=== PATIENT | female | born 1970 | race Caucasian/White ===

== ENCOUNTER → 2020-01-15 14:39 | Outpatient (CLI) | payer OTHER, SELFPAY ==
--- NOTE | 2020-01-15 14:40 | DI.US.S_ITS ---
PROCEDURE: US ABDOMEN LIMITED INDICATIONS: splenomegaly, anemia TECHNIQUE: Real-time focused scanning was performed of the abdomen, with image documentation. COMPARISON: None. FINDINGS: The spleen measures 13.3 x 13.8 x 5 cm, with a calculated volume of 480 cubic cm. IMPRESSION: Splenomegaly. Dictated by: Bal Salazar M.D. on 01/15/2020 at 14:28 Approved by: Bal Salazar M.D. on 01/15/2020 at 14:29
== END ==
PROVIDERS: PCP Acupuncturist; Referring Provider Acupuncturist; Visit Provider Internal Medicine Hematology & Oncology
DX: R16.1 Splenomegaly, not elsewhere classified (principal); D50.9 Iron deficiency anemia, unspecified
CPT/HCPCS: 76705

== ENCOUNTER → 2020-02-29 10:41 | Outpatient (CLI) | payer OTHER, SELFPAY ==
--- NOTE | 2020-02-29 | DI.US.S_ITS ---
PROCEDURE: US ABDOMEN COMPLETE INDICATIONS: LEFT UPPER QUADRANT AND LEFT LOWER QUADRANT PAIN TECHNIQUE: Real-time scanning was performed of the abdominal and retroperitoneal organs, with image documentation. COMPARISON: [facility], , US ABDOMEN LIMITED, 01/15/2020, 14:57. FINDINGS: Liver: Liver is normal in size and homogeneous in echotexture. Gallbladder: The gallbladder appears normal Biliary ducts: Intrahepatic bile ducts are non-dilated. Extrahepatic bile duct caliber measures 3.4 mm. Normal is 6-7 mm or less in diameter, or 10 mm or less post-cholecystectomy. Pancreas: Visualized portions of the pancreas are sonographically normal. Spleen: Spleen is mildly enlarged in size as was previously the case and homogeneous in echotexture. Kidneys: Kidneys are normal in size and echotexture. Right kidney measures 12.7 cm long; left kidney measures 13.4 cm long. No hydronephrosis or nephrolithiasis. No solid masses. Aorta: Visualized aorta is normal in caliber at less than 3 cm. Iliacs: Proximal common iliac arteries are normal in caliber at less than 2.5 cm. IVC: Intrahepatic inferior vena cava is patent. Miscellaneous: No free abdominal fluid. IMPRESSION: Splenic size is enlarged, as was previously the case 01/15/20. No focal splenic lesion is identified. Dictated by: Wenceslao Valerio M.D. on 02/29/2020 at 13:30 Approved by: Wenceslao Valerio M.D. on 02/29/2020 at 13:34
== END ==
PROVIDERS: PCP Acupuncturist; Referring Provider Acupuncturist; Visit Provider Acupuncturist
DX: R10.12 Left upper quadrant pain (principal); R10.32 Left lower quadrant pain; R16.1 Splenomegaly, not elsewhere classified
CPT/HCPCS: 76700

== ENCOUNTER → 2020-03-07 14:20 | Oncology outpatient (ONC) | payer OTHER, SELFPAY ==
[2020-01-11] MEDS: IRON SUCROSE 200 MG in SODIUM CHLORIDE 0.9% 100 ML 110 ML IV (15:01)
[2020-01-11 16:18] VITALS: BP 125/67; PULSE 79; RESP 16; TEMP 37; O2SAT 100
--- NOTE | 2020-01-11 16:36 | P.CONONC_ITS ---
History of Present Illness - Data of Consult Patient: new to practice Consult date: 01/11/20 Requesting Physician: Mana Cutler ND Primary Care Provider: Mana Cutler ND - Consult Narrative Reason for consult: Severe iron deficiency anemia Narrative: Adelina Ballesteros is a 49 year old female with medical problems most notable for type 1 diabetes, and alopecia areata. According to patient, she has been diagnosed with iron deficiency for a number of years. Patient has used oral iron supplements in the past; however she said that the oral supplement did not seem to make any difference. Therefore she has not been taking the oral iron supplementation consistently. Available laboratory test results from 03/01/2017 showed WBC 3.6, hemoglobin 9.5, hematocrit 33.3, and MCV 65, platelet counts 383. Recently on 12/22/2019, she went to the emergency room because of urinary tract infection. The lab results showed WBC 10.3, hemoglobin 8.1, hematocrit 28.6, M CV 62, and platelet counts 223. On December 29, 2019, she underwent repeat lab tests that showed WBC 10.7, hemoglobin 7, hematocrit 25 1%, MCV 63, and platelet count 600. Serum creatinine level 0.68. Iron binding capacity 220, iron 16, and iron saturation 7%. Ferritin 30. Patient said that her energy level was good until a few weeks ago. She has never had colonoscopy before. She denies any blood in the stool or blood in urine. She denies any heavy periods. She denies any craving for unusual food or objects. Early this morning, patient underwent first infusion of Venofer and has tolerate d well. CC: Laura Moffett MD Home Medications and Allergies Home Medications Medication Instructions Recorded Confirmed Type insulin glargine [Lantus U-100 16 unit SUBCUT BID 01/11/20 01/11/20 History Insulin] insulin lispro [Humalog U-100 5 unit SUBCUT TID 01/11/20 01/11/20 History Insulin] Allergies Allergy/AdvReac Type Severity Reaction Status Date / Time No Known Drug Allergies Allergy Verified 01/11/20 15:50 Medical History - Medical, Surgical, Family History Medical History: Medical History (Last Updated 01/11/20 @ 21:50 by Laura Moffett MD) Alopecia areata Chronic anemia Type 1 diabetes Surgical History: Surgical History (Last Updated 01/11/20 @ 21:54 by Laura Moffett MD) H/O removal of cyst History of Family History: Family History (Last Updated 01/11/20 @ 21:54 by Laura Moffett MD) Sister defect Asthma Review of Systems All systems PM: reviewed and no additional remarkable complaints except as stated Exam Vital signs: Vital Signs Temp Pulse Resp BP Pulse Ox 01/11/20 16:18 98.6 F 79 16 125/67 100 Intake and Output 01/11/20 01/11/20 01/11/20 07:59 15:59 23:59 Intake Total 110 / 110 Balance 110 / 110 Intake: IV 110 / 110 Iron Sucrose 200 mg In Sodium 110 / 110 Chloride 0.9% 100 ml @ 110 mls/ hr IV NOW ONE Rx#:[id number] - Constitutional positive no acute distress, positive chronically ill appearing, positive cooperative - Routine HEENT Exam Head: Present: normocephalic, atraumatic Eye: Present: EOMI, PERRL, normal accommodation. Absent: conjunctival icterus ENT: Present: mucous membranes moist - Routine Neck Exam Present: supple. Absent: lymphadenopathy, thyromegaly - Routine Chest/Breast/Axilla Exam Axillae: Absent: lymphadenopathy - Routine Respiratory Exam Present: Clear to auscultation bilaterally. Absent: wheezes - Routine Cardiovascular Exam Present: RRR, S1, S2. Absent: murmur, gallop, rubs - Routine Abdominal Exam Present: soft. Absent: tenderness, distended Palpation/Percussion: Present: splenomegaly (1 cm below LCM). Absent: hepatomegaly - Routine Extremities Exam Absent: edema - Routine Neurological Exam Present: alert, oriented X3, CN II-XII intact. Absent: sensory deficit, motor deficit - Routine Psychiatric Exam Present: normal affect Results - Labs See HPI Assessment and Plan (1) Iron deficiency anemia 49-year-old female with iron deficiency anemia of unknown etiology, presumably due to abnormal uptake. Patient has history of type 1 diabetes. Patient denies any abnormal heavy periods and denies any gastrointestinal bleeding. I talked with the patient that most likely she has malabsorption of the oral iron supplements. I agree with continued the iron infusion and will evaluate the response in about 8 weeks and decide about future iron infusion. On my physical examination, the spleen is just palpable. I am recommending an ultrasound study for further evaluation. Plan: Continue and complete Venofer 200 mg iv qw x5 US abd to evaluate splenomegaly RTC in 8 weeks, CBC, CMP, Fe panel, Ferritin (2) Splenomegaly See Above
--- NOTE | 2020-01-12 15:44 | ONC.SCHED ---
Noticed that referral for consult was for [id number]. Not sure if this covers our usual 05858 code for billing. Email Mahsa Brenner to see if I need to have patient's doctore, Mana Cutler, put in a different referral for her consult (retro) or simply have her do a new referral for her follow-up visits using code 15499. Also, submitted referral request for [id number] Iron for the additional infusions ordered by Dr. Moffett.
--- NOTE | 2020-01-13 11:06 | ONC.SCHED ---
Shakira, nurse @ [facility], is putting in for retro auth dating back to 01/11/2020 for [id number], PA Charles Mcconnell referring. [place] [id number] and was billed as [id number] per Mahsa Brenner. I initially reached out to Dr. Cuello, with whom I spoke directly, who stated that she wasn't the one who did the referral for the patient because [facility] required that she establish with a [facility] provider prior to being referred. Will check for approval in a couple of days. Patient's iron authorization, put in by me yesterday, 01/12/2020, is pending review.
[2020-01-18] MEDS: IRON SUCROSE 200 MG in SODIUM CHLORIDE 0.9% 100 ML 220 ML IV (15:08)
[2020-01-18 15:29] VITALS: BP 125/75; PULSE 67; RESP 16; TEMP 37.1; O2SAT 100
--- NOTE | 2020-01-21 11:55 | PC.NURSE ---
Addendum entered by Tameka Roper R.N. 01/21/20 13:59: Pt update over phone, verbalized understanding, agrees to keep appts. Original Note: U.S update: Pt called for update on ultra sound results. Dr. Moffett reviewed results and stated spleen very mildly enlarged. According to Dr. Moffett not urgent and pt okay to keep iron infusion appt and f/u in 8 weeks. This RN called to update pt, unable to reach pt, VM left to return call to clinic.
[2020-01-25] MEDS: IRON SUCROSE 200 MG in SODIUM CHLORIDE 0.9% 100 ML 220 ML IV (15:16)
[2020-01-25 15:19] VITALS: BP 133/77; PULSE 59; RESP 16; TEMP 36; O2SAT 100
--- NOTE | 2020-02-02 09:35 | PC.NURSE ---
Pt called to report pain in left flank. More severe last week, but has gotten better. Pt reports no other symptoms but that she believes she has a kidney stone caused by the iron treatment This was conveyed to Dr. Moffett and his response was that he believes the pain is unrelated to the iron treatment and advised the patient to seek medical treatment for the pain. Pt verbalized understanding.
[2020-02-08] MEDS: IRON SUCROSE 200 MG in SODIUM CHLORIDE 0.9% 100 ML 220 ML IV (15:40)
[2020-03-07 14:59] VITALS: BP 136/76; PULSE 60; RESP 16; TEMP 35.8; O2SAT 100
--- NOTE | 2020-03-07 15:00 | P.PNONC_ITS ---
PN -Subjective Interval history: Favian is a 49 year old female with chronic iron deficiency. She recently completed IV iron sucrose weekly 200 mg x 4. She reported that her eye sight improved and her cough went away. She reports no sob, no cp, no n/v, and no abdominal pain. She has a little bit fullness of the abdomen. She has pain in h er hips that comes and goes. She said she did not take any pain medications. Today, she is complaining muscle and joint aches. She reports very irregular menstrual periods. Home Medications and Allergies Home Medications Medication Instructions Recorded Confirmed Type insulin glargine [Lantus U-100 16 unit SUBCUT BID 01/11/20 03/07/20 History Insulin] insulin lispro [Humalog U-100 5 unit SUBCUT TID 01/11/20 03/07/20 History Insulin] Allergies Allergy/AdvReac Type Severity Reaction Status Date / Time No Known Drug Allergies Allergy Verified 01/11/20 15:50 Exam Vital signs: 03/07/20 23:27 Last Vital Signs Temp 96.5 F L 03/07/20 14:59 Pulse 60 03/07/20 14:59 Resp 16 03/07/20 14:59 BP 136/76 03/07/20 14:59 Pulse Ox 100 03/07/20 14:59 - Constitutional positive no acute distress, negative average body habitus, positive chronically ill appearing, positive cooperative - Routine HEENT Exam Head: Present: normocephalic, atraumatic, cushingoid faces Eye: Present: EOMI, PERRL, normal accommodation. Absent: conjunctival icterus, scleral injection - Routine Neck Exam Present: supple. Absent: lymphadenopathy, thyromegaly - Routine Chest/Breast/Axilla Exam Axillae: Absent: lymphadenopathy - Routine Respiratory Exam Present: Clear to auscultation bilaterally. Absent: accessory muscle use, wheezes - Routine Cardiovascular Exam Present: RRR, S1, S2. Absent: murmur, gallop, rubs - Routine Abdominal Exam Present: soft. Absent: tenderness, distended, organomegaly Palpation/Percussion: Absent: hepatomegaly - Routine Extremities Exam Present: clubbing, edema. Absent: cyanosis - Routine Neurological Exam Present: alert, oriented X3, CN II-XII intact. Absent: sensory deficit, motor deficit - Routine Psychiatric Exam Present: normal affect Assessment and Plan (1) Iron deficiency anemia 49-year-old female with iron deficiency anemia of unknown etiology, presumably due to abnormal uptake. Patient has history of type 1 diabetes. Patient denies any abnormal heavy periods and denies any gastrointestinal bleeding. Patient received intravenous iron 200 mg 1 for about 4 infusions. Overall she has tolerated well. I reviewed the lab results with the patient. Compared to December, the iron panel has normalized. Talked with the patient that I will continue current active surveillance and will proceed with intravenous iron infusion on as-needed basis. Patient understood that the most important is to monitor if there is any bleeding. I also touched base with her about possible screening colonoscopy. Patient voiced understanding but declined the colonoscopy. She would like to think about it before making decision. Plan: RTC in 12 weeks, CBC, CMP, Fe panel, Ferritin (2) Splenomegaly I also reviewed the ultrasound study with the patient. The spleen is slightly enlarged stable compared to her previous study. The echotexture is also homogeneous. I will continue monitoring.
== END ==
PROVIDERS: PCP Acupuncturist; Referring Provider Internal Medicine; Visit Provider Internal Medicine Hematology & Oncology
DX: D50.9 Iron deficiency anemia, unspecified (principal); R16.1 Splenomegaly, not elsewhere classified; E10.9 Type 1 diabetes mellitus without complications; Z79.4 Long term (current) use of insulin
CPT/HCPCS: 96365; 99204; 99214; J1756

== ENCOUNTER → 2022-06-18 15:34 | Outpatient (CLI) | payer OTHER, SELFPAY ==
--- NOTE | 2022-06-18 | DI.US.S_ITS ---
PROCEDURE: US ABDOMEN COMPLETE INDICATIONS: SPLENOMEGALY; LUQ PAIN TECHNIQUE: Real-time scanning was performed of the abdominal and retroperitoneal organs, with image documentation. COMPARISON: [facility], , US ABDOMEN COMPLETE, 02/29/2020, 10:51. FINDINGS: Liver: Liver is normal in size and homogeneous in echotexture. Gallbladder: No stones. Wall thickness is normal measuring 1.4 mm. Biliary ducts: Intrahepatic bile ducts are non-dilated. Extrahepatic bile duct caliber measures 3.4 mm. Normal is 6-7 mm or less in diameter, or 10 mm or less post-cholecystectomy. Pancreas: Visualized portions of the pancreas are sonographically normal. Spleen: Spleen measures 12.5 cm compared to 13.3 cm. Kidneys: Kidneys are normal in size and echotexture. Right kidney measures 13.4 cm long; left kidney measures 11.2 cm long. No hydronephrosis or nephrolithiasis. No solid masses. Aorta: Visualized aorta is normal in caliber at less than 3 cm. Iliacs: Proximal common iliac arteries are normal in caliber at less than 2.5 cm. IVC: Intrahepatic inferior vena cava is patent. Miscellaneous: No free abdominal fluid. IMPRESSION: Spleen measures 12.5 cm compared to 13.3 cm on prior exam. Dictated by: Shelia Jo M.D. on 06/18/2022 at 16:53 Approved by: Shelia Jo M.D. on 06/18/2022 at 16:54
== END ==
PROVIDERS: PCP Acupuncturist; Referring Provider Acupuncturist; Visit Provider Acupuncturist
DX: R10.12 Left upper quadrant pain (principal); R16.1 Splenomegaly, not elsewhere classified
CPT/HCPCS: 76700

== ENCOUNTER → 2023-12-24 | Outpatient (CLI) | payer OTHER, SELFPAY ==
--- NOTE | 2023-12-24 | DI.US.S_ITS ---
PROCEDURE: US PELVIC COMPLETE INDICATIONS: DUB TECHNIQUE: Real-time scanning was performed of the pelvic organs, with image documentation. Additional endovaginal scanning was necessary due to incomplete visualization of the adnexal and endometrial structures by transabdominal scanning. COMPARISON: None. FINDINGS: Uterus: Uterus is anteverted and normal in size at 10.7 x 5.3 x 6.9 cm. The myometrium is homogeneous. The endometrium measures 11.6 mm combined thickness. Ovaries: The ovaries are not seen. Other: No pathologic free abdominal or pelvic fluid. IMPRESSION: Endometrium measures 11.6 millimeters. If patient is postmenopausal, this is considered thickened and further evaluation with endometrial sampling or short-term follow-up ultrasound is recommended. The ovaries are not seen. We strive to produce accurate, complete, and clear reports of imaging services. To assist us in improving patient care, this report was composed using standard report templates and voice recognition software. Therefore, it may contain abnormal punctuation, insertions and/or omissions. Occasional wrong-word or sound-alike substitutions may occur. Though we review the report and make efforts to correct it, we do recommend that the report be read carefully in proper context to recognize any text inaccuracies. Dictated by: Bang Layton M.D. on 12/24/2023 at 14:53 Approved by: Bang Layton M.D. on 12/24/2023 at 14:56
== END ==
LOC: US 13:47
PROVIDERS: PCP Physician Assistant; Referring Provider Physician Assistant; Visit Provider Physician Assistant
DX: N93.9 Abnormal uterine and vaginal bleeding, unspecified (principal)
CPT/HCPCS: 76830; 76856